=== PATIENT | male | born 1955 | race Two or more races ===

== ENCOUNTER 2019-02-13 12:36 | Inpatient (IN) | payer MEDICAID ==
[~2019-02-13] VITALS: Ht 195.6 cm; Wt 140.6 kg
[2019-02-13 13:33] LABS: BASOPHILS % 0.4 % (0.0-2.0); EOSINOPHILS % 0.3 % (0.0-5.0); HEMATOCRIT. 44.3 % (42.0-52.0); HEMOGLOBIN. 14.1 g/dL (14.0-18.0); LYMPHOCYTES % 35.7 % (20.0-50.0); MEAN CORPUSCULAR HEMOGLOBIN 27.5 pg (28.0-32.0); MEAN CORPUSCULAR VOLUME 86.7 fL (80.0-94.0); MEAN PLATELET VOLUME 8.1 fl (7.4-10.4); MONOCYTES % 8.7 % (2.0-8.0); NEUTROPHILS % 54.9 % (40.0-76.0); PLATELET 238 x1000/uL (130-400); RED BLOOD CELL COUNT 5.11 mill/uL (4.7-6.1); RED CELL DISTRIBUTION WIDTH 15.3 % (11.6-14.6)
[2019-02-13 13:38] LABS: CHLORIDE 110 mEq/L (98-107); PROTHROMBIN TIME 10.4 sec (9.6-11.0)
[2019-02-13 13:42] LABS: ETHANOL BLOOD < 10 mg/dL
[2019-02-13] MEDS ORDERED: ASPIRIN 325MG EC TABLET PO ONE (14:15)
[2019-02-13] MEDS ORDERED: DIPHENHYDRAMINE 50MG/ML VIAL IV PRN (16:15)
[2019-02-13] MEDS ORDERED: ONDANSETRON HCL 4MG/2ML INJ IV PRN (16:15)
[2019-02-13] MEDS ORDERED: IPRATROPIUM/ALBUTEROL 0.5-3(2.5)MG/3ML NEB INH PRN (16:15)
[2019-02-13] MEDS ORDERED: ACETAMINOPHEN 325MG TABLET PO PRN (16:15)
[2019-02-13] MEDS ORDERED: MAGNESIUM/ALUMINUM HYDROXIDE/SIMETHICONE 30ML UDC PO PRN (16:15)
[2019-02-13] MEDS ORDERED: HYDROCODONE/ACETAMINOPHEN 5/325MG TABLET PO PRN (16:15)
[2019-02-13] MEDS ORDERED: GUAIFENESIN 200MG/10ML SUGAR FREE UDC PO PRN (16:15)
[2019-02-13] MEDS ORDERED: DOCUSATE SODIUM 100MG CAPSULE PO PRN (16:15)
[2019-02-13 17:30] LABS: PHOSPHORUS 2.5 mg/dL (2.5-4.9)
[2019-02-13 17:58] LABS: HEPATITIS B SURFACE ANTIGEN NEGATIVE
[2019-02-13 18:27] LABS: HEPATITIS A AB IGM NEGATIVE (NEGATIVE)
[2019-02-13 21:39] LABS: CLARITY URINE CLEAR (CLEAR); COLOR URINE YELLOW (YELLOW); KETONES URINE NEGATIVE (NEGATIVE); LEUKOCYTE ESTERASE URINE NEGATIVE (NEGATIVE); NITRITE URINE NEGATIVE (NEGATIVE); OCCULT BLOOD URINE NEGATIVE (NEGATIVE); PH URINE 5.5 (4.5-8.0); PROTEIN URINE NEGATIVE (NEGATIVE); SPECIFIC GRAVITY URINE 1.022 (1.005-1.030)
[2019-02-13 21:50] LABS: *AMPHETAMINES SCREEN URINE NEGATIVE (NEGATIVE); *BARBITURATES SCREEN URINE NEGATIVE (NEGATIVE); *BENZODIAZEPINES SCREEN URINE NEGATIVE (NEGATIVE); *COCAINE SCREEN URINE NEGATIVE (NEGATIVE); CANNABINOID URINE SCREEN NEGATIVE (NEGATIVE); METHADONE URINE SCREEN NEGATIVE (NEGATIVE); OPIATES URINE SCREEN NEGATIVE (NEGATIVE); PHENCYCLIDINE URINE SCREEN NEGATIVE (NEGATIVE)
[2019-02-13 23:05] VITALS: BP 165/91
[2019-02-13 23:10] VITALS: BP 165/91
[2019-02-14] MEDS ORDERED: DEXTROSE 50% WATER 50ML SYRINGE IV PRN (00:30)
[2019-02-14 00:43] LABS: CREATINE KINASE 116 IU/L (39-308)
[2019-02-14] MEDS: CLONIDINE 0.1MG TABLET PO PRN ×2 (02:11→12:26)
[2019-02-14 04:00] VITALS: BP 137/84
[2019-02-14] MEDS: BLOOD SUGAR DIAGNOSTIC STRIP TEST SCH ×4 (06:54→21:52)
[2019-02-14] MEDS: INSULIN LISPRO 100 UNITS/ML SUBCUT SCH ×4 (06:54→21:00)
[2019-02-14 07:01] LABS: BASOPHILS % 0.5 % (0.0-2.0); EOSINOPHILS % 0.9 % (0.0-5.0); HEMATOCRIT. 42.5 % (42.0-52.0); HEMOGLOBIN. 13.7 g/dL (14.0-18.0); LYMPHOCYTES % 31.1 % (20.0-50.0); MEAN CORPUSCULAR VOLUME 86.9 fL (80.0-94.0); MONOCYTES % 9.7 % (2.0-8.0); NEUTROPHILS % 57.8 % (40.0-76.0); PLATELET 221 x1000/uL (130-400); RED CELL DISTRIBUTION WIDTH 15.4 % (11.6-14.6)
[2019-02-14 07:21] LABS: CHLORIDE 109 mEq/L (98-107)
[2019-02-14 07:46] LABS: LDL CHOLESTEROL 99 mg/dL (5-100)
[2019-02-14 07:47] LABS: CREATINE KINASE 121 IU/L (39-308); HDL CHOLESTEROL 32 mg/dL (40-59)
[2019-02-14 08:00] VITALS: BP 130/78
[2019-02-14] MEDS ORDERED: ASPIRIN 81MG EC TABLET PO SCH (09:00)
[2019-02-14] MEDS: CLOPIDOGREL 75MG TABLET PO SCH (10:05)
[2019-02-14 11:16] LABS: T4 FREE 1.13 ng/dL (0.76-1.46)
[2019-02-14 11:24] LABS: FOLIC ACID (FOLATE) SERUM 12.7 ng/mL (>5.38)
[2019-02-14 12:00] VITALS: BP 160/88
[2019-02-14 15:34] VITALS: BP 135/81
[2019-02-14] MEDS: ENOXAPARIN 30MG/0.3ML SYR SUBCUT SCH (17:07)
[2019-02-14 20:00] VITALS: BP 134/75
[2019-02-14] MEDS ORDERED: IOHEXOL-350 100 ML BOTTLE ONE (20:16)
[2019-02-14] MEDS: ATORVASTATIN CALCIUM 20MG TABLET PO SCH (21:52)
[2019-02-15] VITALS (7 sets, daily range): BP systolic 137–161; BP diastolic 76–100
[2019-02-15] MEDS: BLOOD SUGAR DIAGNOSTIC STRIP TEST SCH ×3 (05:36→17:14)
[2019-02-15] MEDS: INSULIN LISPRO 100 UNITS/ML SUBCUT SCH ×4 (05:37→20:47)
[2019-02-15 08:17] LABS: HIV SCREEN 4G Non Reactive (Non Reactive)
[2019-02-15] MEDS: ENOXAPARIN 30MG/0.3ML SYR SUBCUT SCH (09:20)
[2019-02-15] MEDS: CLOPIDOGREL 75MG TABLET PO SCH (09:20)
[2019-02-15] MEDS: CLONIDINE 0.1MG TABLET PO PRN (18:14)
[2019-02-15] MEDS: ATORVASTATIN CALCIUM 20MG TABLET PO SCH (20:44)
[2019-02-15] MEDS ORDERED: ENOXAPARIN 40MG/0.4ML SYR SUBCUT SCH (21:00)
[2019-02-17 04:18] LABS: ANTI-CARDIOLIPIN AB IGA < 9 APL U/mL (0-11); ANTI-CARDIOLIPIN AB IGG < 9 GPL U/mL (0-14); ANTI-CARDIOLIPIN AB IGM < 9 MPL U/mL (0-12)
[2019-02-17 13:12] LABS: ANTI-THROMBIN ACTIVITY 110 % (75-135); DRVVT LA 39.5 sec (0.0-47.0); LUPUS ANTICOAG INTERPRETATION Comment: (.); PROTEIN C FUNCTIONAL 128 % (73-180)
== END 2019-02-15 22:30 | disposition short-term general hospital (02) | DRG 45 ==
LOC: ER 12:36 → 8WST 14:40 → EDBEDREQ 14:44 → EDBEDREQTM 14:44 → CANRESERV 22:15 → ENRESERV 22:15 → 8WST 02-14 03:30
PROVIDERS: ADMIT Internal Medicine; ATTEND Internal Medicine
DX: I63.9 Cerebral infarction, unspecified (principal); G81.91 Hemiplegia, unspecified affecting right dominant side; F60.89 Other specific personality disorders; E78.5 Hyperlipidemia, unspecified; I10 Essential (primary) hypertension; R47.01 Aphasia; E11.9 Type 2 diabetes mellitus without complications; R13.10 Dysphagia, unspecified; E66.9 Obesity, unspecified; E78.00 Pure hypercholesterolemia, unspecified; F17.200 Nicotine dependence, unspecified, uncomplicated; R41.4 Neurologic neglect syndrome; R26.9 Unspecified abnormalities of gait and mobility; Z68.36 Body mass index [BMI] 36.0-36.9, adult; Z82.3 Family history of stroke; Z82.49 Family history of ischemic heart disease and other diseases of the circulatory system; Z86.73 Personal history of transient ischemic attack (TIA), and cerebral infarction without residual deficits
CPT/HCPCS: 36415; 70496; 70544; 70551; 71045; 80061; 80305; 80320; 81400; 81403; 81407; 81479; 82550; 82607; 82746; 82962; 83036; 83735; 84100; 84439; 84443; 84481; 84484; 85300; 85303; 85306; 85613; 85732; 86147; 86705; 86709; 86803; 87340; 87389; 92610; 93005; 93306; 93880; 93970; 97116; 97163; 97166; 99291; C1893; J1650; J1815; Q9967; G0480